=== PATIENT | male | born 1985 ===

== ENCOUNTER 2016-09-29 14:39 | Emergency (ER) | payer SELFPAY ==
[2016-09-29 15:26] VITALS: BP 118/68
--- NOTE | 2016-09-29 16:16 | UC ---
Ear Complaint HPI - HPI Summary HPI Summary: 31 yo male with the onset of right ear discomfort and inability to hear after trying to clean the wax out of his right ear this am hx cerumen impaction - History of Current Complaint Chief Complaint: UCEar Stated Complaint: RIGHT EAR PAIN Time Seen by Provider: 09/29/16 15:55 Hx Obtained From: Patient Onset/Duration: Sudden Onset Severity Initially: Moderate Severity Currently: Mild Pain Intensity: 2 Pain Scale Used: 0-10 Numeric Associated Signs/Symptoms: Positive: Hearing Loss - Allergies/Home Medications Allergies/Adverse Reactions: Allergies Allergy/AdvReac Type Severity Reaction Status Date / Time No Known Allergies Allergy Verified 09/29/16 15:25 Home Medications: Home Medications PARoxetine HCL TAB* [Paxil TAB*] 40 mg PO DAILY 09/29/16 [History Confirmed 08/13] PMH/Surg Hx/FS Hx/Imm Hx Previously Healthy: Yes - Surgical History Surgical History: None - Family History Known Family History: Negative: Cardiac Disease, Hypertension, Diabetes - Social History Alcohol Use: Rare Substance Use Type: None Smoking Status (MU): Never Smoked Tobacco Review of Systems Constitutional: Negative Skin: Negative Eyes: Negative ENT: Ear Ache Respiratory: Negative Cardiovascular: Negative Gastrointestinal: Negative Genitourinary: Negative Motor: Negative Neurovascular: Negative Musculoskeletal: Negative Neurological: Negative Psychological: Negative All Other Systems Reviewed And Are Negative: Yes Physical Exam Triage Information Reviewed: Yes Appearance: Well-Appearing, No Pain Distress, Well-Nourished Vital Signs: Initial Vital Signs Temp 98.1 F 09/29/16 15:21 Pulse 72 09/29/16 15:21 Resp 16 09/29/16 15:21 BP 118/68 09/29/16 15:21 Pulse Ox 100 09/29/16 15:21 Vital Signs Reviewed: Yes Eye Exam: Normal ENT: Positive: Pharynx normal. Negative: Hearing grossly normal, Pharyngeal erythema, Nasal congestion, Nasal drainage, TMs normal - unable to vis both TMs due to cerumen Dental Exam: Normal Neck: Positive: Supple, Nontender, No Lymphadenopathy Respiratory: Positive: Lungs clear, Normal breath sounds, No respiratory distress Cardiovascular: Positive: RRR, No Murmur Abdomen Description: Positive: Nontender, No Organomegaly Bowel Sounds: Positive: Present Musculoskeletal Exam: Normal Neurological Exam: Normal Neurological: Positive: Alert Psychological Exam: Normal Ear Complaint Course/Dx - Course Course Of Treatment: TM's both normal after flush - Differential Dx/Diagnosis Provider Diagnoses: cerumen impaction bilaterally Discharge - Discharge Plan Condition: Stable Disposition: HOME Patient Education Materials: Cerumen Impaction (ED) Referrals: [facility] [Primary Care Provider] - If Needed Additional Instructions: call for any questions return for any problems
== END 2016-09-29 16:49 | disposition home or self-care (01) ==
LOC: UCCORT 14:39
DX: H61.23 Impacted cerumen, bilateral (principal)
CPT/HCPCS: 99203; G0463